=== PATIENT | female | born 1940 | race Caucasian/White ===

== ENCOUNTER 2016-11-01 15:46 | Emergency (ER) | payer MEDICARE ==
[~2016-11-01] VITALS: Ht 167.6 cm; Wt 79.5 kg
[~2016-11-01 15:46] MED LIST: ALBU1.25 NEB; ALBU8.5H3 INH; ALBU8.5H5; ALPR0.25 PO; ALPR0.257 PO; ASPI-496 PO; ASPI-515 PO; ATOR40TA78 PO; ATOR80TA75 PO; AZEL137S4 NAS; CALC1TAB38 PO; CARV12.543 PO; CARV6.252 PO; CHOL400T12 PO; CIPR500T87 PO; CLOP75TA22 PO; CYCL-259 PO; ENAL2.5T32 PO; ERGO400T2 PO; FLUT10.6 NAS; FLUT16SP2 NS; FLUT1DIS3 INH; HYDR-3307 PO; KETOPROFEN 5% TP; LEVA15HF2 IH; LEVA15HF2 NEB; LISI5TAB7 PO; METH454P PO; METH5TAB PO; METH5TAB2 PO; MULT-6 PO; NITR0.4T SL; NITR0.4T8 SL; OMEP20CA9 PO; POLY17PO5 PO; RANI150T8 PO; TIOT18CA INH; VENL37.52 PO; ZOLP10TA PO; [UNRECOGNIZED DRUG - CODE] PO; effexor PO; oxygen INH
[2016-11-01] MEDS ORDERED: ALBUTEROL/IPRATROPIUM 2.5MG/0.5MG, 3 ML ONE (16:37)
[2016-11-01] MEDS ORDERED: ALBUTEROL/IPRATROPIUM 2.5MG/0.5MG, 3 ML NPPB ONE (17:00)
[2016-11-01] MEDS ORDERED: SODIUM CHLORIDE FLUSH 10ML SYR IVF ONE (17:00)
[2016-11-01 18:10] LABS: BLOOD UREA NITROGEN 11 mg/dL (7-18)
[2016-11-01 18:14] LABS: IS PT STATUS REG ER OR PRE ER? YES
[2016-11-01 19:55] VITALS: BP 124/78
== END 2016-11-01 19:57 | disposition home or self-care (01) ==
LOC: ED 19:46
DX: J44.1 Chronic obstructive pulmonary disease with (acute) exacerbation (principal); R06.00 Dyspnea, unspecified; E78.00 Pure hypercholesterolemia, unspecified; I10 Essential (primary) hypertension; K21.9 Gastro-esophageal reflux disease without esophagitis; I25.2 Old myocardial infarction; Z86.718 Personal history of other venous thrombosis and embolism; F17.210 Nicotine dependence, cigarettes, uncomplicated
CPT/HCPCS: 36415; 71010; 80048; 82040; 84484; 85025; 87040; 93005; 94640; 99285; J7512; J7620

== ENCOUNTER → 2017-06-14 | Outpatient (CLI) | payer MEDICARE ==
[~2017-06-14] MED LIST changes: -ALBU8.5H3 INH; +ALBU8.5H8 INH; +ATOR-2 PO; -ATOR80TA75 PO; -CLOP75TA22 PO; +CLOP75TA52 PO; -LEVA15HF2 IH; -LEVA15HF2 NEB; +LEVA15HF4 IH; +LEVA15HF4 NEB; +NITR0.4T28 SL; -NITR0.4T8 SL
== END | disposition home or self-care (01) ==
LOC: CFH 08:16
PROVIDERS: ATTEND Physician Assistant
DX: Z12.2 Encounter for screening for malignant neoplasm of respiratory organs (principal); J44.9 Chronic obstructive pulmonary disease, unspecified; J84.10 Pulmonary fibrosis, unspecified; F17.210 Nicotine dependence, cigarettes, uncomplicated
CPT/HCPCS: G0297

== ENCOUNTER → 2017-11-08 | Outpatient (CLI) | payer MEDICARE ==
[~2017-11-08] MED LIST changes: +RANI150T23 PO; -RANI150T8 PO; +REGADENOSON 0.4 MG/5 ML SYRINGE ONE
== END | disposition home or self-care (01) ==
LOC: CVU 06:46
PROVIDERS: ATTEND Internal Medicine Cardiovascular Disease
DX: I08.0 Rheumatic disorders of both mitral and aortic valves (principal); I25.9 Chronic ischemic heart disease, unspecified; I25.10 Atherosclerotic heart disease of native coronary artery without angina pectoris
CPT/HCPCS: 0399T; 78452; 93017; 93306; A9502; J2785

== ENCOUNTER 2018-01-28 13:33 | Emergency (ER) | payer MEDICARE ==
[~2018-01-28] VITALS: Ht 162.6 cm; Wt 86.5 kg
[~2018-01-28 13:33] MED LIST changes: -REGADENOSON 0.4 MG/5 ML SYRINGE ONE
[2018-01-28] MEDS ORDERED: LIDOCAINE 1%, 10ML INFIL ONE (14:00)
[2018-01-28] MEDS ORDERED: LIDOCAINE-MPF 2%, 2ML ONE (14:24)
[2018-01-28] MEDS ORDERED: HYDROcodone/APAP 5/325 TABLET ONE (15:41)
[2018-01-28] MEDS ORDERED: HYDROcodone/APAP 5/325 TABLET PO ONE (16:00)
[2018-01-28 17:01] VITALS: BP 135/86
== END 2018-01-28 17:02 | disposition home or self-care (01) ==
LOC: ED 15:05
DX: S01.01XA Laceration without foreign body of scalp, initial encounter (principal); S93.491A Sprain of other ligament of right ankle, initial encounter; W18.30XA Fall on same level, unspecified, initial encounter; I25.2 Old myocardial infarction; E78.00 Pure hypercholesterolemia, unspecified; J44.9 Chronic obstructive pulmonary disease, unspecified; K21.9 Gastro-esophageal reflux disease without esophagitis; I10 Essential (primary) hypertension; M54.9 Dorsalgia, unspecified; G89.29 Other chronic pain; R51 Headache; Z86.718 Personal history of other venous thrombosis and embolism; Z87.891 Personal history of nicotine dependence; Y93.89 Activity, other specified; Y99.8 Other external cause status; Y92.009 Unspecified place in unspecified non-institutional (private) residence as the place of occurrence of the external cause
CPT/HCPCS: 70450; 71101; 72125; 73030; 73502; 73564; 73610; 73630; 99284; J3490

== ENCOUNTER → 2018-06-20 | Outpatient (CLI) | payer MEDICARE ==
[2018-06-20 18:10] LABS: ALBUMIN 3.2 g/dL (3.4-5.0); ANION GAP 4 mmol/L (5-15); CALCIUM 9.3 mg/dL (8.5-10.1); CHLORIDE 105 mmol/L (98-107)
[2018-06-20 18:21] LABS: ALANINE AMINOTRANSFERASE 24 U/L (12-78); ALKALINE PHOSPHATASE 102 U/L (45-117); BILIRUBIN,TOTAL 0.4 mg/dL (0.2-1.0); CHOL/HDL RATIO 2.2; CHOLESTEROL, TOTAL 141 mg/dL (140-239); CREATININE 0.63 mg/dL (0.55-1.02); HDL CHOL % 45 % (28-40); HDL CHOLESTEROL (DIRECT) 64 mg/dL (40-60); LDL CHOLESTEROL,CALCULATED 56 mg/dL (54-169); LDL/HDL RATIO 0.9 (0.5-3.0); T4 (THYROXINE) 8.9 mcg/dL (4.8-13.9); THYROID STIMULATING HORMONE 0.524 mIU/L (0.358-3.740); TRIGLYCERIDES 104 mg/dL (50-200); VLDL CHOLESTEROL 21 mg/dL (0-25)
[2018-06-20 18:27] LABS: BASOPHILS # (AUTO) 0.03 x10^3/uL (0-0.1); BASOPHILS % (AUTO) 0 % (0-1); EOSINOPHILS # (AUTO) 0.23 x10^3/uL (0-0.4); EOSINOPHILS % (AUTO) 2 % (1-7); LYMPHOCYTES # (AUTO) 1.53 x10^3/uL (1-3.4); LYMPHOCYTES % (AUTO) 14 % (22-44); MD NO; MEAN CORPUSCULAR HEMOGLOBIN 31.7 pg (27.0-34.8); MEAN CORPUSCULAR HGB CONC 33.8 g/dL (32.4-35.8); MEAN CORPUSCULAR VOLUME 93.8 fL (80-100); MEAN PLATELET VOLUME 9.1 fL (7.4-10.4); MONOCYTES % (AUTO) 5 % (2-9); NEUTROPHILS # (AUTO) 8.44 x10^3/uL (1.8-6.8); NEUTROPHILS % (AUTO) 79 % (42-75); PLATELET COUNT 315 x10^3/uL (130-400); RED BLOOD COUNT 3.84 x10^6/uL (3.82-5.3)
== END | disposition home or self-care (01) ==
LOC: LAB 17:15
PROVIDERS: ATTEND Anesthesiology
DX: E78.00 Pure hypercholesterolemia, unspecified (principal); I25.10 Atherosclerotic heart disease of native coronary artery without angina pectoris; R06.02 Shortness of breath
CPT/HCPCS: 36415; 80053; 80061; 84436; 84443; 84481; 85025

== ENCOUNTER → 2018-06-23 | Outpatient (CLI) | payer MEDICARE | END | disposition home or self-care (01) | LOC: CFH 08:18 | PROVIDERS: ATTEND Physician Assistant | DX: Z12.2 Encounter for screening for malignant neoplasm of respiratory organs (principal); F17.210 Nicotine dependence, cigarettes, uncomplicated; J43.9 Emphysema, unspecified; J84.10 Pulmonary fibrosis, unspecified; I25.10 Atherosclerotic heart disease of native coronary artery without angina pectoris | CPT/HCPCS: G0297 ==

== ENCOUNTER 2018-09-21 06:19 | Emergency (ER) | payer MEDICARE ==
[~2018-09-21] VITALS: Ht 167.6 cm; Wt 73.0 kg
[2018-09-21] MEDS ORDERED: FLUT1DIS5 IH (06:36)
[2018-09-21] MEDS ORDERED: ALBUTEROL/IPRATROPIUM 2.5MG/0.5MG, 3 ML ONE (06:44)
[2018-09-21] MEDS: ALBUTEROL/IPRATROPIUM 2.5MG/0.5MG, 3 ML NPPB SCH (06:47)
--- NOTE | 2018-09-21 06:51 | NUR ---
PT ARRIVED VIA [facility] - PT IN [facility]. SIGNIFICANT OTHER AT BEDSIDE. EKG DONE. PT BACK FROM RAD. ORDERED MEDS GIVEN. RT GOING TO GIVE TX. LAB DRAWING BLOOD. REPORT TO MORIAH PAIZ.
[2018-09-21] MEDS ORDERED: HYDROcodone/APAP 5/325 TABLET ONE ×2 (07:18→08:39)
[2018-09-21 07:26] LABS: BASOPHILS # (AUTO) 0.02 x10^3/uL (0-0.1); BASOPHILS % (AUTO) 0 % (0-1); EOSINOPHILS # (AUTO) 0.26 x10^3/uL (0-0.4); EOSINOPHILS % (AUTO) 3 % (1-7); LYMPHOCYTES # (AUTO) 1.98 x10^3/uL (1-3.4); LYMPHOCYTES % (AUTO) 21 % (22-44); MD NO; MEAN CORPUSCULAR HEMOGLOBIN 30.9 pg (27.0-34.8); MEAN CORPUSCULAR HGB CONC 32.4 g/dL (32.4-35.8); MEAN CORPUSCULAR VOLUME 95.6 fL (80-100); MEAN PLATELET VOLUME 9.6 fL (7.4-10.4); MONOCYTES # (AUTO) 0.44 x10^3/uL (0.2-0.8); MONOCYTES % (AUTO) 5 % (2-9); NEUTROPHILS # (AUTO) 6.92 x10^3/uL (1.8-6.8); NEUTROPHILS % (AUTO) 72 % (42-75); PLATELET COUNT 296 x10^3/uL (130-400); RED BLOOD COUNT 3.91 x10^6/uL (3.82-5.3); RED CELL DISTRIBUTION WIDTH 12.6 % (9.6-15.2)
[2018-09-21 07:28] LABS: ALBUMIN 3.2 g/dL (3.4-5.0); CALCIUM 8.8 mg/dL (8.5-10.1); CHLORIDE 106 mmol/L (98-107); CREATININE 0.65 mg/dL (0.55-1.02)
[2018-09-21] MEDS ORDERED: HYDROcodone/APAP 5/325 TABLET PO ONE ×2 (07:30→09:00)
[2018-09-21 07:33] LABS: TROPONIN I < 0.015 ng/mL (0.000-0.045)
[2018-09-21 07:38] LABS: ANION GAP 4 mmol/L (5-15)
--- NOTE | 2018-09-21 07:45 | NUR ---
PT UP TO BR W O2 EXTENDED PERIOD OF TIME NEEDED
--- NOTE | 2018-09-21 08:09 | NUR ---
ATTEMPTING PATONG IV FOR CTA
--- NOTE | 2018-09-21 09:00 | NUR ---
multi attempts made to start iv will attempt us iv
--- NOTE | 2018-09-21 09:05 | NUR ---
CT WAITING FOR IV
--- NOTE | 2018-09-21 09:15 | NUR ---
warm blankets given
--- NOTE | 2018-09-21 10:56 | NUR ---
BEDSIDE REPORT FROM MORIAH RN, PT RESTING IN [facility], UP FOR DC. TO GET O2 TANK FROM HOME
[2018-09-21 11:00] VITALS: BP 134/58
== END 2018-09-21 11:37 | disposition home or self-care (01) ==
LOC: ED 08:46
DX: J43.9 Emphysema, unspecified (principal); G89.29 Other chronic pain; I25.2 Old myocardial infarction; K21.9 Gastro-esophageal reflux disease without esophagitis; E78.00 Pure hypercholesterolemia, unspecified; F32.9 Major depressive disorder, single episode, unspecified; I11.0 Hypertensive heart disease with heart failure; I50.9 Heart failure, unspecified; Z86.718 Personal history of other venous thrombosis and embolism
CPT/HCPCS: 36415; 71046; 71275; 80048; 82040; 83605; 83880; 84484; 85025; 87040; 93005; 94640; 99284; J7512; J7620

== ENCOUNTER 2019-06-27 10:52 | Emergency (ER) | payer MEDICARE ==
[~2019-06-27] VITALS: Ht 165.1 cm; Wt 79.6 kg
[~2019-06-27 10:52] MED LIST changes: +FLUT1DIS5 IH; -HYDR-3307 PO; +HYDR-36 PO; -NITR0.4T SL; +NITR0.4T41 SL; +RANI-467 PO; -RANI150T23 PO
[2019-06-27 11:55] LABS: BASOPHILS # (AUTO) 0.03 x10^3/uL (0-0.1); BASOPHILS % (AUTO) 1 % (0-1); EOSINOPHILS # (AUTO) 0.23 x10^3/uL (0-0.4); EOSINOPHILS % (AUTO) 4 % (1-7); LYMPHOCYTES # (AUTO) 1.68 x10^3/uL (1-3.4); LYMPHOCYTES % (AUTO) 26 % (22-44); MD NO; MEAN CORPUSCULAR HEMOGLOBIN 32.1 pg (27.0-34.8); MEAN CORPUSCULAR HGB CONC 33.6 g/dL (32.4-35.8); MEAN CORPUSCULAR VOLUME 95.4 fL (80-100); MEAN PLATELET VOLUME 9.2 fL (7.4-10.4); MONOCYTES # (AUTO) 0.38 x10^3/uL (0.2-0.8); MONOCYTES % (AUTO) 6 % (2-9); NEUTROPHILS # (AUTO) 4.25 x10^3/uL (1.8-6.8); NEUTROPHILS % (AUTO) 65 % (42-75); PLATELET COUNT 279 x10^3/uL (130-400); RED BLOOD COUNT 3.92 x10^6/uL (3.82-5.3); RED CELL DISTRIBUTION WIDTH 13.3 % (9.6-15.2)
--- NOTE | 2019-06-27 11:56 | NUR ---
TO MERA FROM [facility] AND PROVIDED URINE SAMPLE. PT HAS RLQ PAIN THAT COMES AND GOES. TODAY WHILE AT MD THE PAIN CAME ON AND SO MD DIRECTED HER TO ER. DAUGHTER WITH PT
[2019-06-27 12:03] LABS: ALBUMIN 3.1 g/dL (3.4-5.0); ANION GAP 5 mmol/L (5-15); CALCIUM 9.1 mg/dL (8.5-10.1); CHLORIDE 103 mmol/L (98-107); CREATININE 0.64 mg/dL (0.55-1.02)
[2019-06-27 12:56] LABS: MICROSCOPIC AUTO
[2019-06-27 12:58] LABS: CULTURE INDICATED? YES
[2019-06-27 13:08] LABS: ALANINE AMINOTRANSFERASE 15 U/L (12-78); ALBUMIN 3.1 g/dL (3.4-5.0)
[2019-06-27 13:10] LABS: ALKALINE PHOSPHATASE 93 U/L (45-117); BILIRUBIN,TOTAL 0.4 mg/dL (0.2-1.0)
[2019-06-27 13:13] LABS: BILIRUBIN, DIRECT < 0.1 mg/dL (0.1-0.2); BILIRUBIN,INDIRECT 0.3 mg/dL (0.0-2.0)
--- NOTE | 2019-06-27 13:45 | NUR ---
BREAK RN: PT GIVEN WARM BLANKET, PT TO CT, VSS.
[2019-06-27] MEDS ORDERED: morphine SULFATE 10 MG/ML, 1ML IVPush ONE (14:30)
[2019-06-27] MEDS ORDERED: PINK LADY ENEMA 490 ML BOTTLE PR ONE (14:30)
[2019-06-27] MEDS ORDERED: MORPHINE SULFATE 4 MG/ML, 1ML ONE (14:50)
--- NOTE | 2019-06-27 15:01 | NUR ---
MEDICATED PER MAR FOR ABDOMINAL PAIN. AWAITING [facility] ENEMA FROM PHARMACY
--- NOTE | 2019-06-27 15:46 | NUR ---
PT GIVEN ENEMA AND THEN UOB TO BATHROOM AND HAD A BM.
[2019-06-27 16:14] VITALS: BP 152/75
--- NOTE | 2019-06-27 16:14 | NUR ---
RE-EVALUATING PT
== END 2019-06-27 17:01 | disposition home or self-care (01) ==
LOC: ED 12:37
DX: K59.00 Constipation, unspecified (principal); R10.31 Right lower quadrant pain; J44.9 Chronic obstructive pulmonary disease, unspecified; I25.2 Old myocardial infarction; I10 Essential (primary) hypertension; K21.9 Gastro-esophageal reflux disease without esophagitis; E78.00 Pure hypercholesterolemia, unspecified
CPT/HCPCS: 36415; 74177; 80048; 80076; 81001; 82040; 83690; 85025; 87086; 99284; J2270

== ENCOUNTER 2019-10-10 13:27 | Emergency (ER) | payer MEDICARE ==
[~2019-10-10] VITALS: Ht 165.1 cm; Wt 79.3 kg
[~2019-10-10 13:27] MED LIST changes: +HYDR-3246 PO; -HYDR-36 PO
--- NOTE | 2019-10-10 13:56 | NUR ---
PT A&OX4, USING HOME OXYGEN CONCENTRATOR AT 4LNC ("I USUALLY USE 3). STATES "I WOKE UP AT 7:00 WITH GROIN PAIN" BILATERAL. TOOK NORCO 10-325 AT 0730. HAS A BUPRENORPORPHINE PATCH 15MG ON LT SHOULDER - PLACED ON TUESDAY. WAS SEEN AT [facility] TODAY. NO AMBULATORY AID USED AT HOME; HAS A WALKER, BUT DOESN'T USE IT. DENIES RECENT FALL, URINARY SX.
--- NOTE | 2019-10-10 14:00 | NUR ---
ROOM O2 SAT 83%. PT PLACED ON ED OXYGEN AT 3LNC.
--- NOTE | 2019-10-10 14:03 | NUR ---
DR IZAGUIRRE BS FOR EXAM
--- NOTE | 2019-10-10 14:25 | NUR ---
PT REQUESTING TO TAKE OWN NORCO FOR 910 PAIN. WILL CONSULT ERP
--- NOTE | 2019-10-10 14:26 | NUR ---
AMBULATORY TO & FROM [facility] W/OUT INCIDENT, GAIT STEADY, ACCOMPANIED BY DAUGHTER. SCANT AMOUNT OF URINE COLLECTED.
--- NOTE | 2019-10-10 14:30 | NUR ---
CONSULTED DR IZAGUIRRE RE: PT'S NORCO REQUEST. PER ERP, PT MAY TAKE OWN WO FundingCO.
--- NOTE | 2019-10-10 14:32 | NUR ---
PT TOOK ONE NORCO.
[2019-10-10 14:50] LABS: BASOPHILS # (AUTO) 0.04 x10^3/uL (0-0.1); BASOPHILS % (AUTO) 0 % (0-1); EOSINOPHILS # (AUTO) 0.16 x10^3/uL (0-0.4); EOSINOPHILS % (AUTO) 2 % (1-7); LYMPHOCYTES # (AUTO) 1.87 x10^3/uL (1-3.4); LYMPHOCYTES % (AUTO) 18 % (22-44); MD NO; MEAN CORPUSCULAR HEMOGLOBIN 31.8 pg (27.0-34.8); MEAN CORPUSCULAR VOLUME 96.5 fL (80-100); MONOCYTES # (AUTO) 0.31 x10^3/uL (0.2-0.8); MONOCYTES % (AUTO) 3 % (2-9); NEUTROPHILS # (AUTO) 8.11 x10^3/uL (1.8-6.8); NEUTROPHILS % (AUTO) 77 % (42-75); PLATELET COUNT 300 x10^3/uL (130-400); RED BLOOD COUNT 3.78 x10^6/uL (3.82-5.3); RED CELL DISTRIBUTION WIDTH 13.2 % (9.6-15.2)
[2019-10-10 14:56] LABS: ANION GAP 5 mmol/L (5-15); CALCIUM 9.3 mg/dL (8.5-10.1); CHLORIDE 103 mmol/L (98-107)
[2019-10-10 14:56] LABS: MICROSCOPIC INDICATED
[2019-10-10 14:57] LABS: CREATININE 0.67 mg/dL (0.55-1.02)
[2019-10-10] MEDS ORDERED: HYDR-3245 PO (15:05)
[2019-10-10] MEDS ORDERED: TRAZ-96 PO (15:05)
[2019-10-10] MEDS ORDERED: BUPR1PAT21 TP (15:05)
[2019-10-10] MEDS ORDERED: FLUO20CA23 PO (15:05)
[2019-10-10] MEDS ORDERED: FLUT1BLS3 INH (15:05)
[2019-10-10] MEDS ORDERED: DEXT30SU8 PO (15:05)
[2019-10-10] MEDS ORDERED: VARE1TAB21 PO (15:05)
[2019-10-10] MEDS ORDERED: EZET10TA48 PO (15:11)
[2019-10-10] MEDS ORDERED: LOSA25TA12 PO (15:11)
[2019-10-10] MEDS ORDERED: ALBU18HF NAS (15:11)
[2019-10-10] MEDS ORDERED: GABA300C10 PO (15:11)
[2019-10-10] MEDS ORDERED: HYDROCORTISONE TP (15:18)
[2019-10-10] MEDS ORDERED: BENZ-17 PO (15:18)
[2019-10-10] MEDS ORDERED: TRIAMCINOLONE ACET TP (15:18)
[2019-10-10] MEDS ORDERED: ONDA4TAB7 PO (15:18)
--- NOTE | 2019-10-10 15:38 | NUR ---
RESTING ON BED, WATCHING TV, CALL LIGHT W/IN REACH, SIDE RAILS UP X2.
[2019-10-10 15:57] VITALS: BP 109/37
--- NOTE | 2019-10-10 16:00 | NUR ---
PT REPORTS IMPROVEMENT IN GROIN PAIN: "VERY LITTLE"
--- NOTE | 2019-10-10 16:11 | NUR ---
ERP AT BS TO DISCUSS POC
[2019-10-10] MEDS ORDERED: CEFDINIR 300 MG CAPSULE ONE (16:26)
[2019-10-10] MEDS ORDERED: CEFDINIR 300 MG CAPSULE PO ONE (16:30)
[2019-10-10] MEDS ORDERED: PLEASE ENTER ALLERGIES MC SCH (16:30)
--- NOTE | 2019-10-10 16:34 | NUR ---
PT FULLY DRESSED, AWAITING DC. OMNICEF GIVEN PER EMAR.
== END 2019-10-10 16:49 | disposition home or self-care (01) ==
LOC: ED 15:47
DX: N30.00 Acute cystitis without hematuria (principal); M79.605 Pain in left leg; M79.604 Pain in right leg; M79.89 Other specified soft tissue disorders; I10 Essential (primary) hypertension; I25.2 Old myocardial infarction; E78.00 Pure hypercholesterolemia, unspecified; K21.9 Gastro-esophageal reflux disease without esophagitis; J44.9 Chronic obstructive pulmonary disease, unspecified; Z86.718 Personal history of other venous thrombosis and embolism
CPT/HCPCS: 36415; 80048; 81001; 82040; 85025; 87077; 87086; 87186; 93970; 99284

== ENCOUNTER → 2019-11-01 | Outpatient (CLI) | payer MEDICARE ==
[~2019-11-01] MED LIST changes: +ALBU18HF NAS; +BENZ-17 PO; +BUPR1PAT21 TP; +DEXT30SU8 PO; +EZET10TA48 PO; +FLUO20CA23 PO; +FLUT1BLS3 INH; +GABA300C10 PO; +HYDR-3245 PO; +HYDROCORTISONE TP; +LOSA25TA12 PO; +ONDA4TAB7 PO; +REGADENOSON 0.4 MG/5 ML SYRINGE ONE; +TRAZ-96 PO; +TRIAMCINOLONE ACET TP; +VARE1TAB21 PO
[2019-11-01 12:58] LABS: BASOPHILS # (AUTO) 0.12 x10^3/uL (0-0.1); BASOPHILS % (AUTO) 1 % (0-1); EOSINOPHILS # (AUTO) 0.54 x10^3/uL (0-0.4); EOSINOPHILS % (AUTO) 6 % (1-7); LYMPHOCYTES # (AUTO) 2.06 x10^3/uL (1-3.4); LYMPHOCYTES % (AUTO) 22 % (22-44); MD NO; MEAN CORPUSCULAR HEMOGLOBIN 31.3 pg (27.0-34.8); MEAN CORPUSCULAR HGB CONC 32.8 g/dL (32.4-35.8); MEAN CORPUSCULAR VOLUME 95.4 fL (80-100); MEAN PLATELET VOLUME 9.3 fL (7.4-10.4); MONOCYTES # (AUTO) 0.48 x10^3/uL (0.2-0.8); MONOCYTES % (AUTO) 5 % (2-9); NEUTROPHILS # (AUTO) 6.27 x10^3/uL (1.8-6.8); NEUTROPHILS % (AUTO) 66 % (42-75); PLATELET COUNT 325 x10^3/uL (130-400); RED BLOOD COUNT 3.94 x10^6/uL (3.82-5.3)
[2019-11-01 13:15] LABS: ALANINE AMINOTRANSFERASE 17 U/L (12-78); ANION GAP 7 mmol/L (5-15); CALCIUM 9.3 mg/dL (8.5-10.1); CHLORIDE 106 mmol/L (98-107); CHOLESTEROL, TOTAL 138 mg/dL (140-239); TRIGLYCERIDES 120 mg/dL (50-200); VLDL CHOLESTEROL 24 mg/dL (0-25)
[2019-11-01 13:18] LABS: ALKALINE PHOSPHATASE 82 U/L (45-117); BILIRUBIN,TOTAL 0.4 mg/dL (0.2-1.0); CREATININE 0.54 mg/dL (0.55-1.02); HDL CHOLESTEROL (DIRECT) 39 mg/dL (40-60); TOTAL PROTEIN 6.8 g/dL (6.4-8.2)
[2019-11-01 14:03] LABS: LDL CHOLESTEROL,CALCULATED 75 mg/dL (54-169); LDL/HDL RATIO 1.9 (0.5-3.0)
[2019-11-01 14:04] LABS: CHOL/HDL RATIO 3.5; HDL CHOL % 28 % (28-40)
== END | disposition home or self-care (01) ==
LOC: CFH 06:47
PROVIDERS: ATTEND Internal Medicine Cardiovascular Disease
DX: I35.8 Other nonrheumatic aortic valve disorders (principal); I10 Essential (primary) hypertension; I25.10 Atherosclerotic heart disease of native coronary artery without angina pectoris; F17.210 Nicotine dependence, cigarettes, uncomplicated; E78.00 Pure hypercholesterolemia, unspecified
CPT/HCPCS: 36415; 78452; 80053; 80061; 85025; 93017; 93306; A9502; J2785

== ENCOUNTER → 2020-04-02 | Outpatient (CLI) | payer MEDICARE ==
[~2020-04-02] MED LIST changes: -REGADENOSON 0.4 MG/5 ML SYRINGE ONE
== END | disposition home or self-care (01) ==
LOC: CFH 06:45
PROVIDERS: ATTEND Nurse Practitioner
DX: Z12.31 Encounter for screening mammogram for malignant neoplasm of breast (principal)
CPT/HCPCS: 77063; 77067